=== PATIENT | male | born 1975 | race Caucasian/White ===

== ENCOUNTER 2020-08-07 15:49 | Emergency (ER) | payer SELFPAY ==
[2020-08-07 16:04] VITALS: BP 142/89; PULSE 85; RESP 18; TEMP 35.9; O2SAT 97
--- NOTE | 2020-08-07 16:11 | ED.DENTAL ---
HPI - Dental/Oral General Chief complaint: Dental/Oral Stated complaint: Tooth Pain Time Seen by Provider: 08/07/20 16:11 Source: patient Mode of arrival: ambulatory Limitations: no limitations History of Present Illness HPI Narrative: Xavi Simmons is a 45 yo male with dental pain in 3 teeth- 2 on lower R one on left upper -has poor dentition and has had multiple problems with teeth his appointment next week for extraction of the 2 tooth on the right, requesting an antibiotic and pain medication Related Data Allergies Allergy/AdvReac Type Severity Reaction Status Date / Time No Known Allergies Allergy Mild Verified 08/07/20 16:07 Review of Systems Review of Systems: Narrative: CONSTITUTIONAL: Denies fever, chills, sweats. EYES: Denies visual changes, redness, discharge. ENT: Denies rhinorrhea, congestion, sore throat, otalgia. Missing many teeth is lower to right molars are causing him pain there is 1 tooth on the upper left molar that is also causing pain CARDIOVASCULAR: Denies chest pain, palpitations, edema. RESPIRATORY: Denies dyspnea, wheezing, cough GASTROINTESTINAL: Denies abdominal pain, nausea, vomiting, diarrhea. GENITOURINARY: Denies dysuria, hematuria, abnormal discharge SKIN: Denies rash or itching. NEUROLOGIC: Denies numbness, or focal weakness. PSYCHIATRIC: Denies anxiety or depression. PMFSH Past Medical History Medical History No acute medical problems Family History Family History Father Diabetes mellitus Social History Social History (Updated 08/07/20 @ 16:19 by Muriel Guillen CNP) Smoking status: Current every day smoker Tobacco type: cigarettes Alcohol intake: never Comments At time of signature, I agree with nursing past medical, surgical, social and family history. There is no relevant family history pertinent to the presenting complaint. Blood pressure is elevated at this visit patient is to follow-up with primary care doc with Exam Narrative: Exam Narrative: GENERAL: This is a well-nourished, well-developed patient, in mild distress. HEAD: normocephalic, atraumatic. EYES: Sclera clear/white. Vision is grossly intact. EARS: External ears normal, Hearing grossly intact. NOSE: External nose normal without nasal discharge, nares without redness, no rhinorrhea. mouth: Poor dentition molars lower right are broken he has swelling around the tooth on the upper left molar in the back THROAT: Mucous membranes moist, posterior pharynx NECK: Neck supple, non-tender CARDIOVASCULAR: Regular rate and rhythm without murmurs, gallops, or rubs. RESPIRATORY: Clear to auscultation. Breath sounds equal bilaterally. No wheezes, rales, or rhonchi. GASTROINTESTINAL: Abdomen soft, non-tender, SKIN: warm, intact with no suspicious lesions or rash, good texture and turgor. NEURO: awake, alert, and oriented to person, place and time. There were no obvious focal neurologic abnormalities. Steady gait EXTREMITIES: Normal range of motion. BACK: Nontender without deformity Course Course Emergency Course: Patient comes to [facility] with complaints of dental pain of 3 teeth 2 on the lower right 1 in the upper left has implant next week for extraction for the to lower right teeth he is a smoker, he is requesting an antibiotic and pain medication. Pressure is also elevated he has no PCP so he has been given referrals for follow-up Started on penicillin VK and tramadol should also be taking 60 mg of Motrin 3 times daily Vital Signs Vital signs: Vital Signs Temperature 96.7 F L 08/07/20 16:04 Pulse Rate 85 08/07/20 16:04 Respiratory Rate 18 08/07/20 16:04 Blood Pressure 142/89 H 08/07/20 16:04 Pulse Oximetry 97 08/07/20 16:04 Temperature 96.7 F L 08/07/20 16:04 Pulse Rate 85 08/07/20 16:04 Respiratory Rate 18 08/07/20 16:04 Blood Pressure 142/89 H 08/07/20 16:04 Pulse
== END 2020-08-07 16:29 | disposition home or self-care (01) ==
PROVIDERS: Emergency Provider Nurse Practitioner
DX: K04.7 Periapical abscess without sinus (principal); F17.210 Nicotine dependence, cigarettes, uncomplicated
CPT/HCPCS: 99203; G0463

== ENCOUNTER 2023-06-27 21:57 | Emergency (ER) | payer OTHER, SELFPAY ==
[2023-06-27 21:59] VITALS: BP 161/90; PULSE 95; RESP 15; TEMP 36.7; O2SAT 100
--- NOTE | 2023-06-27 23:43 | ED.GENADULT ---
HPI - General Adult General Chief complaint: Eye Problems Stated complaint: bilat eye pain, redness Time Seen by Provider: 06/27/23 23:20 History of Present Illness HPI narrative: Patient 48-year-old gentleman who presents emergency department chief complaint of bilateral eye redness. Patient states this morning he noticed that his eyes were matted shut and reported that he had some irritation and redness of his conjunctiva. Patient reports no trauma denies foreign body history. Related Data Allergies Allergy/AdvReac Type Severity Reaction Status Date / Time No Known Allergies Allergy Mild Verified 08/07/20 16:07 Review of Systems Review of Systems: A 10 system review of systems was completed on the patient and is negative except for what is stated in the HPI. Nursing and ancillary documentation was reviewed. [facility] Past Medical History Medical History No acute medical problems Family History Family History Father Diabetes mellitus Social History Social History Smoking status: Current every day smoker Tobacco type: cigarettes Alcohol intake: never Exam Narrative: GENERAL: Well-appearing, well-nourished, and in no acute distress. HEAD: Normocephalic, atraumatic. EYES: PERRLA and EOMI. Injected conjunctiva exudate present in all eyes. IOP OD 10 OS 7 negative fluorescein uptake no foreign body noted on exam ENT: Nares clear, no rhinorrhea or epistaxis. Mucous membranes moist. NECK: Supple. CHEST: Clear to auscultation. No respiratory distress. HEART: Regular rate and rhythm. No murmur heard. Normal peripheral pulses. ABDOMEN: Soft, nontender, nondistended, normal active bowel sounds. EXTREMITIES: Normal range of motion. No edema. SKIN: Warm, dry, no rash. NEURO: No focal deficits. Alert and oriented x3. PSYCH: Normal mood and affect. Course Vital Signs Vital signs: Vital Signs Temperature 36.7 C 06/27/23 21:59 Pulse Rate 95 06/27/23 21:59 Respiratory Rate 15 06/27/23 21:59 Blood Pressure 161/90 H 06/27/23 21:59 Pulse Oximetry 100 06/27/23 21:59 Oxygen Delivery Room Air 06/27/23 21:59 Temperature 36.7 C 06/27/23 21:59 Pulse Rate 95 06/27/23 21:59 Respiratory Rate 15 06/27/23 21:59 Blood Pressure 161/90 H 06/27/23 21:59 Pulse Oximetry 100 06/27/23 21:59 Oxygen Delivery Room Air 06/27/23 21:59 Medical Decision Making MDM Narrative Medical decision making narrative: Differential diagnosis includes acute angle closure glaucoma, conjunctivitis, foreign body, corneal abrasion Exam showed no evidence of corneal abrasion corneal ulcer no evidence of glaucoma. Exam is consistent with conjunctivitis. The patient was started on antibiotic eyedrops and will be instructed follow-up with ophthalmology Vital Signs Vital Signs: Vital Signs Temperature 36.7 C 06/27/23 21:59 Pulse Rate 95 06/27/23 21:59 Respiratory Rate 15 06/27/23 21:59 Blood Pressure 161/90 H 06/27/23 21:59 Pulse Oximetry 100 06/27/23 21:59 Oxygen Delivery Room Air 06/27/23 21:59 Temperature 36.7 C 06/27/23 21:59 Pulse Rate 95 06/27/23 21:59 Respiratory Rate 15 06/27/23 21:59 Blood Pressure 161/90 H 06/27/23 21:59 Pulse Oximetry 100 06/27/23 21:59 Oxygen Delivery Room Air 06/27/23 21:59 Discharge Plan Discharge Clinical Impression: Conjunctivitis Patient Disposition: Home, Self-Care Condition: Stable Instructions: Antibiotic Form, Conjunctivitis (ED) Prescriptions: New sulfacetamide sodium 10 % drops 1 drp EACH EYE Q3H 7 Days Qty: 15 0RF No Action penicillin V potassium 500 mg tablet 500 mg PO Q12H 10 Days Qty: 20 0RF ibuprofen 600 mg tablet 600 mg PO TID PRN (Reason: pain) Qty: 30 0RF tramadol 50 mg tabl
[2023-06-27 23:57] VITALS: BP 145/79; PULSE 87; RESP 15; TEMP 37.1; O2SAT 99
== END 2023-06-27 23:58 | disposition home or self-care (01) ==
PROVIDERS: Emergency Provider Emergency Medicine
DX: H10.9 Unspecified conjunctivitis (principal); F17.210 Nicotine dependence, cigarettes, uncomplicated
CPT/HCPCS: 99283

== ENCOUNTER 2023-07-31 16:19 | Outpatient (CLI) | payer OTHER, SELFPAY ==
--- NOTE | ~2023-07-31 | XR_ITS ---
EXAMINATION: XR chest 2V 07/31/2023 16:37 INDICATION: Cough PROCEDURE: 2 view chest COMPARISON: No prior studies for comparison. FINDINGS: The lungs are clear. The cardiomediastinal silhouette is within normal limits. There are no pleural effusions. There is no pneumothorax suspected. IMPRESSION: 1: NO ACUTE CARDIOPULMONARY DISEASE. Reviewed, dictated and finalized at location B.
[2023-07-31 17:10] LABS: Hematocrit 42.1 % (42.0-52.0); Hemoglobin 14.5 g/dL (14.0-18.0); Mean Corpuscular HGB Conc 34.4 g/dl (32-36); Mean Corpuscular Hemoglobin 32.9 pg (26-34); Mean Corpuscular Volume 95.5 fl (80-100); Platelet Count Result 189 k/mm3 (150-375); Red Blood Count 4.41 M/mm3 (4.6-6.20); Red Cell Distribution Width 13.1 % (11.5-14.5); White Blood Count 6.8 K/mm3 (4.5-10.0)
[2023-07-31 17:12] LABS: Appearance Urine Clear (Clear); Bilirubin Urine Negative (Negative); Blood Urine Negative (Negative); Color Urine Yellow (Yellow); Glucose Urine UA Negative (Negative); Ketones Urine Negative (Negative); Leukocyte Esterase Ur Negative LEU/UL (Negative); Nitrate Urine Negative (Negative); Protein Urine Negative (Negative); Specific Grav Ur 1.028 (1.001-1.035); pH Urine 5.5 (5.0-9.0)
[2023-07-31 17:27] LABS: Add Urine Microscopic? NO
[2023-07-31 18:18] LABS: Hemoglobin A1C 5.7 % (<5.7)
[2023-07-31 18:45] LABS: Creatinine Urine 186.8 mg/dL
[2023-07-31 18:49] LABS: MALB Creatinine Ratio 4.4 mg/g (0-30); Microalbumin Urine Random 8.3 mg/L (0-16.7)
[2023-07-31 18:51] LABS: Free T4 Free Thyroxine 0.81 ng/mL (0.78-2.19); Vitamin D 25 Hydroxy 32.3 ng/mL
[2023-07-31 18:54] LABS: Alanine Aminotransferase 29 U/L (6-50); Albumin Level 4.3 g/dL (3.5-5.1); Alkaline Phosphatase 77 U/L (38-126); Anion Gap 7 mmol/L (4-12); Aspartate Amino Transferase 27 U/L (17-59); Bilirubin,Total 0.7 mg/dL (0.2-1.3); Blood Urea Nitrogen 21 mg/dL (9-20); Calcium 9.1 mg/dL (8.4-10.2); Carbon Dioxide 23 mmol/L (22-30); Chloride 112 mmol/L (98-107); Cholesterol 134 mg/dL (0-200); Estimated Glomerular Filt Rate > 60; Glucose 121 mg/dL (65-110); HDL Direct 28 mg/dL; Sodium 142 mmol/L (137-145); Triglycerides 385 mg/dL (<150)
[2023-07-31 19:05] LABS: LDL Cholesterol Direct 58 mg/dL
[2023-07-31 19:37] LABS: Prostate Specific Antigen 0.4 ng/mL (< OR = 4.0)
[2023-08-05 15:43] LABS: Testosterone Free 38.5 pg/mL (35.0-155.0); Testosterone Total 224 ng/dL (250-1100)
== END 2023-07-31 16:20 | disposition home or self-care (01) ==
PROVIDERS: PCP Emergency Medicine; Visit Provider Emergency Medicine
DX: Z00.00 Encounter for general adult medical examination without abnormal findings (principal); N52.9 Male erectile dysfunction, unspecified; I10 Essential (primary) hypertension; R05.3 Chronic cough; Z87.891 Personal history of nicotine dependence
CPT/HCPCS: 36415; 71046; 80053; 80061; 81003; 82043; 82306; 83036; 84153; 84402; 84403; 84439; 84443; 85027; 87086

== ENCOUNTER 2024-12-21 03:08 | Emergency (ER) | payer OTHER, SELFPAY ==
--- OUTSIDE RECORDS SUMMARY | 2024-12-21 03:10 | XMS_ITS | Clinical Summary ---
Author Organization [facility] Address [address] [place] [id number] Care Team Providers Care Direct Support Professional Caregiver Name Role Phone Unavailable Primary Care Provider Unavailabl e Social History Tobacco Use Types Packs/Day Years Used Date Smoking Tobacco: Never Assessed Sex and Gender Information Value Date Recorded Sex Assigned at Not on file Legal Sex Male 7:15 PM CDT Gender Identity Not on file Sexual Orientation Not on file Last Filed Vital Signs Vital Sign Reading Time Taken Comments Blood Pressure - - Pulse 80 04/19/2016 10:14 AM PROCESSING MANAGER Temperature - - Respiratory Rate - - Oxygen Saturation - - Inhaled Oxygen Concentration - - Weight 93.4 kg (206 lb) 04/19/2016 10:14 AM PROCESSING MANAGER Height 182.9 cm (6') 04/19/2016 10:14 AM PROCESSING MANAGER Body Mass Index 27.94 04/19/2016 10:14 AM PROCESSING MANAGER Plan of Treatment Health Maintenance Due Date Last Done Comments Colorectal Cancer Screening Colonoscopy (10 Years) 1975 Annual Physical 1978 Hepatitis C 1993 DTaP, Tdap and Td Vaccines ( 1 - Tdap) 1994 Hepatitis B Vaccines (1 of 3 - 19+ 3-dose series) 1994 COVID-19 Vaccine (2023-2 5 season) 2024 Meningococcal B Vaccine Aged Out No l onger eligible based on patient's age to complete this topic Meningococcal Vaccine Aged Out No alfredito erich eligible based on patient's age to complete this topic Pneumococcal Vaccine: Pediat rics (0 to 5 Years) and At-Risk Patients (6 to 49 Years) Aged Out No longer eligible b ased on patient's age to complete this topic RSV Immunizations Under 20 Months Aged Out No longer eligible based on patient's age to complete this topic
[2024-12-21 03:12] VITALS: BP 144/83; PULSE 71; RESP 18; TEMP 36.6; O2SAT 100
[2024-12-21] MEDS: TERBUTALINE SULFATE 1 MG/ML VIAL 0.25 MG SUB-Q (03:33)
[2024-12-21] MEDS: HYDROmorphone HCL INJ (*CRX) 1 MG/ML SYR IM (03:39)
--- OUTSIDE RECORDS SUMMARY | 2024-12-21 03:55 | XMS_ITS ---
Author Organization Unknown ENCOUNTERS Encounter Performer Location Date Diagnosis Diagnosis Status Emergency [facility] [address] [place] [address] [id number] Pre Admit [facility] [address] [place] [address] [id number] Outpatient [facility] [address] [place] [address] [id number] BUD Emergency [facility] [address] [place] [address] [id number] BUD Pre Admit [facility] [address] [place] [address] [phone] *Note: Encounters from your own facility or health system may be excluded. Allergies, Adverse Reactions, Alerts Allergen Type Severity Identification Date Medications Name Date Quantity Days Supplied GPI Number
--- OUTSIDE RECORDS SUMMARY | 2024-12-21 03:55 | XMS_ITS | Clinical Summary ---
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
--- NOTE | 2024-12-21 03:59 | ED_ITS ---
HPI - General Adult General Chief complaint: Urogenital-Male Stated complaint: erection Time Seen by Provider: 12/21/24 03:34 History of Present Illness HPI narrative: This is a 49-year-old male presenting ED with chief complaint of painful erection. Patient gave himself a Pap with parents/phentolamine/prostate gland injection in his penis to attain an erection. However his erection did not fade like usual and eventually became painful. He was injected at the clinic around 5:00 p.m. last night. Patient had phenylephrine for injection but was unsure of how to use it. Patient denies history of priapism past. No history of sickle cell. No use of recreational drugs outside of the penile injection. Related Data Allergies Allergy/AdvReac Type Severity Reaction Status Date / Time No Known Allergies Allergy Mild Verified 08/07/20 16:07 [facility] Past Medical History Medical History No acute medical problems Family History Family History Father Diabetes mellitus Social History Social History Smoking status: Current every day smoker Tobacco type: cigarettes Alcohol intake: never Exam Narrative: APPEARANCE: No apparent distress. Head: atraumatic. EYES: EOMI, NOSE: Atraumatic NECK: Trachea midline RESPIRATORY: No increased rate of breathing, CTAB CARDIOVASCULAR: RRR, ABDOMINAL: Non-distended General exam: Priapism MUSCULOSKELETAl: No obvious deformities NEURO: Alert. Moving 4/4 extremities SKIN:: Warm, dry. Normal color PSYCHIATRIC: Normal affect Course Vital Signs Vital signs: Vital Signs Temperature 97.8 F 12/21/24 03:12 Pulse Rate 71 12/21/24 03:12 Respiratory Rate 18 12/21/24 03:12 Blood Pressure 144/83 H 12/21/24 03:12 Pulse Oximetry 100 12/21/24 03:12 Oxygen Delivery Room Air 12/21/24 03:12 Temperature 97.8 F 12/21/24 03:12 Pulse Rate 88 12/21/24 05:01 Respiratory Rate 14 12/21/24 05:01 Blood Pressure 135/74 12/21/24 05:01 Pulse Oximetry 94 12/21/24 05:01 Oxygen Delivery Room Air 12/21/24 03:12 Medical Decision Making [facility] Narrative Medical decision making narrative: -Course: 49-year-old male presenting with 10 hours of painful erection after a injection Pap ovarian/phentolamine/prostaglandins. Patient was immediately given subcutaneous terbutaline. IM Dilaudid. Risks and benefits were explained the patient consented to a penile block. And after that approximately 25 cc were aspirated from each side of the corpus cavernosum with successful detumescence. Patient was monitored for 30 minutes unfortunately he redevelops direction. Another 20 cc blood were aspirated the patient was given a 750 mcg injection of phenyephrine into each corpus cavernosum with D to medicines. The penis was then wrapped elastic bandage. He was then monitored for 1 hour and remained fl accid. Patient will be discharged follow-up with his ED clinic. Given return precautions for priapism. DDX includes but is not limited to: Priapism secondary to erectile dysfunction medication, recreational drugs Vital Signs Vital Signs: Vital Signs Temperature 97.8 F 12/21/24 03:12 Pulse Rate 71 12/21/24 03:12 Respiratory Rate 18 12/21/24 03:12 Blood Pressure 144/83 H 12/21/24 03:12 Pulse Oximetry 100 12/21/24 03:12 Oxygen Delivery Room Air 12/21/24 03:12 Temperature 97.8 F 12/21/24 03:12 Pulse Rate 88 12/21/24 05:01 Respiratory Rate 14 12/21/24 05:01 Blood Pressure 135/74 12/21/24 05:01 Pulse Oximetry 94 12/21/24 05:01 Oxygen Delivery Room Air 12/21/24 03:12 Discharge Plan Discharge Clinical Impression: Priapism Patient Disposition: Home Condition: Stable Instructions: Antibiotic Form, Priapism (ED) Additional Instructions: You were seen in the emergency department for a priapism. Please call your clinic that supplies the erectile dysfunction shots to arrange close follow-up in the next 24-48 hours. If you develop a painful erection can please report to emergency department immediately, as the longer you have a painful erection the more likely you are to suffer long-term damage. Patient Language: Romanian Prescriptions: No Action penicillin V potassium 500 mg tablet 500 mg PO Q12H 10 Days Qty: 20 0RF ibuprofen 600 mg tablet 600 mg PO TID PRN (Reason: pain) Qty: 30 0RF tramadol 50 mg tablet 50 mg PO Q6H PRN (Reason: pain) Qty: 24 0RF sulfacetamide sodium 10 % drops 1 drp EACH EYE Q3H 7 Days Qty: 15 0RF Follow-up/Referrals: Christian Lambert MD [Primary Care Provider, Family Practice]
[2024-12-21 05:01] VITALS: BP 135/74; PULSE 88; RESP 14; O2SAT 94
[2024-12-21] MEDS: PHENYLEPHRINE HCL INJ 10 MG, SODIUM CHLORIDE 0.9% INJ 19 ML I-CAVERN (05:08)
== END 2024-12-21 06:35 | disposition home or self-care (01) ==
PROVIDERS: Emergency Provider Emergency Medicine; PCP Emergency Medicine
DX: N48.33 Priapism, drug-induced (principal); T44.3X5A Adverse effect of other parasympatholytics [anticholinergics and antimuscarinics] and spasmolytics, initial encounter; F17.210 Nicotine dependence, cigarettes, uncomplicated
CPT/HCPCS: 54220; 96372; 99284; J1171; J2371; J3105